=== PATIENT | male | born 1970 | race Caucasian/White ===

== ENCOUNTER 2016-06-02 18:30 | Emergency (ER) | payer MEDICARE ==
[~2016-06-02 18:30] MED LIST: ABILIFY15 M1 PO; CHANTIX1 EACH PO; CYCLOBENZAPRINE10 M1 PO; CYMBALTA60 M1 PO; FISH OIL 11000 MG/CA PO; HYDROCODON-ACE1 EA16 PO; HYDROCODON-ACE1 EA17 PO; MELOXICAM7.5 M1 PO; MEN'S DAILY FO1 EACH PO; MIRAPEX0.5 M1 PO; MOBIC7.5 M2 PO; NORVASC10 M2 PO; PRILOSEC20 M1 PO; PROAIR HFA8.5 GM INH; PROMETHAZINE HC25 M3 PO; TOPROL XL100 M1 PO; [UNRECOGNIZED DRUG - OTHER] PO; [UNRECOGNIZED DRUG - REMARK] PO
[2016-06-02] MEDS ORDERED: LUNESTA3 M1 PO (18:54)
[2016-06-02] MEDS ORDERED: PROMETHAZINE HC25 M3 PO (18:56)
[2016-06-02] MEDS ORDERED: NORCO 5-325 TA1 EACH PO (20:43)
== END 2016-06-02 21:30 ==
LOC: EDMED 18:30
DX: M54.5 Low back pain (principal); G89.29 Other chronic pain; I25.10 Atherosclerotic heart disease of native coronary artery without angina pectoris; I25.2 Old myocardial infarction; I10 Essential (primary) hypertension; J45.909 Unspecified asthma, uncomplicated; F17.210 Nicotine dependence, cigarettes, uncomplicated; Z79.51 Long term (current) use of inhaled steroids; Z79.899 Other long term (current) drug therapy
CPT/HCPCS: J2270

== ENCOUNTER 2016-06-08 08:35 | Emergency (ER) | payer MEDICARE ==
[~2016-06-08 08:35] MED LIST changes: +LUNESTA3 M1 PO; +NORCO 5-325 TA1 EACH PO
[2016-06-08] MEDS ORDERED: OMEPRAZOLE40 M2 PO (09:37)
[2016-06-08 10:49] LABS: BASO % 0.3 % (0-2); EOS % 2.1 % (0-7); EOSINOPHIL ABSOLUTE COUNT 0.3 tho/cmm (0.0-0.7); HCT-HEMATOCRIT 45.5 % (36.0-53.5); HGB-HEMOGLOBIN 14.9 gm/dl (13.5-17.0); LYMPH ABSOLUTE COUNT 2.1 tho/cmm (0.8-4.5); MCH (MEAN CORPUSCULAR HGB) 26.8 pg (28.0-32.0); MCHC MEAN CORPUSCULAR HGB CONC 32.7 % (32.0-36.0); MEAN PLATELET VOLUME 10.2 cmc (9.4-12.4); MONOCYTE ABSOLUTE COUNT 1.2 tho/cmm (0.0-1.2); NEUTROPHIL ABSOLUTE COUNT 8.1 tho/cmm (1.6-8.0); NEUTROPHIL-AUTOMATED 8.1 tho/cmm (1.6-8.0); NEUTROPHILS % 69.6 % (40-80); PLATELET COUNT 259 tho/cmm (150-450); RED BLOOD COUNT 5.55 mil/cmm (4.40-5.70); RED CELL DISTRIBUTION WIDTH 14.6 % (12.4-16.4); WHITE BLOOD COUNT 11.6 tho/cmm (4.0-10.0)
[2016-06-08 11:00] LABS: ANION GAP 13 mmol/L (0-20); BLOOD UREA NITROGEN 13 mg/dl (6-24); CALCIUM 8.8 mg/dl (8.5-10.5); CARBON DIOXIDE-VENOUS 26 mmol/L (22-32); CHLORIDE 107 mmol/l (96-110); GLUCOSE 101 mg/dL (70-110); POTASSIUM 3.2 mmol/L (3.7-5.1); SODIUM 143 mmol/L (135-145); eGFR VALUE FOR BLACK >90 mL/Min
== END 2016-06-08 12:03 ==
LOC: EDMED 08:35
PROVIDERS: Emergency Medicine
DX: I10 Essential (primary) hypertension (principal); I25.10 Atherosclerotic heart disease of native coronary artery without angina pectoris; I25.2 Old myocardial infarction; Z86.73 Personal history of transient ischemic attack (TIA), and cerebral infarction without residual deficits; E78.5 Hyperlipidemia, unspecified; F32.9 Major depressive disorder, single episode, unspecified; F41.9 Anxiety disorder, unspecified; F17.210 Nicotine dependence, cigarettes, uncomplicated; Z79.899 Other long term (current) drug therapy; Z79.51 Long term (current) use of inhaled steroids

== ENCOUNTER 2016-07-27 18:05 | Emergency (ER) | payer MEDICARE ==
[~2016-07-27 18:05] MED LIST changes: +OMEPRAZOLE40 M2 PO
[2016-07-27] MEDS ORDERED: ZITHROMAX250 M1 PO (21:20)
[2016-07-27] MEDS ORDERED: PROAIR HFA8.5 GM INH (21:22)
[2016-07-27] MEDS ORDERED: GUAIFENESIN AC473 ML PO (21:22)
== END 2016-07-27 21:28 ==
LOC: EDMED 18:05
DX: J18.9 Pneumonia, unspecified organism (principal); I25.10 Atherosclerotic heart disease of native coronary artery without angina pectoris; I10 Essential (primary) hypertension; J45.909 Unspecified asthma, uncomplicated; F17.210 Nicotine dependence, cigarettes, uncomplicated; Z79.51 Long term (current) use of inhaled steroids; Z79.899 Other long term (current) drug therapy